=== PATIENT | male | born 1990 | race Caucasian/White ===

== ENCOUNTER 2021-11-11 19:53 | Emergency (ER) | payer MEDICAID, SELFPAY ==
[2021-11-11 19:54] VITALS: BP 138/90; PULSE 73; RESP 17; TEMP 36.9; O2SAT 98; BMI 24.4
--- NOTE | 2021-11-11 21:25 | PC.NURSE ---
Pt is upset on the wait time and decided to leave prior to being seen. Attempted to explain to pt that radiology was taking a longer time than expected and apologized. Pt walked away.
[2021-11-11 21:31] VITALS: BP 126/84; PULSE 75; RESP 20; TEMP 36.8; O2SAT 97
== END 2021-11-11 21:32 | disposition left against medical advice (07) ==
PROVIDERS: Emergency Provider Emergency Medicine
DX: M25.521 Pain in right elbow (principal); M25.531 Pain in right wrist

== ENCOUNTER 2021-11-12 11:22 | Emergency (ER) | payer MEDICAID, SELFPAY ==
[2021-11-12 11:22] VITALS: BP 126/84; PULSE 71; RESP 16; TEMP 36.7; O2SAT 97; BMI 24.4
--- NOTE | 2021-11-12 11:41 | XR_ITS ---
FINAL REPORT CLINICAL HISTORY: Fall FINDINGS: RIGHT ELBOW 2 views were obtained. The coronoid process fracture seen on the forearm is not well visualized. The joint spaces are intact. There is a joint effusion/hemarthrosis. IMPRESSION: Coronoid process fracture not well seen but there is a joint effusion/hemarthrosis. Reviewed, Interpreted and Dictated by Albert Burch III, MD Transcribed by Brigette Shen Authenticated and [facility]
--- NOTE | 2021-11-12 11:41 | XR_ITS ---
FINAL REPORT CLINICAL HISTORY: Fall FINDINGS: RIGHT FOREARM 2 views of the right forearm were obtained. There is a fracture of the coronoid process of the proximal ulna. The joints are intact. There are no soft tissue abnormalities. IMPRESSION: Proximal ulna fracture as above. Reviewed, Interpreted and Dictated by Albert Burch III, MD Transcribed by Brigette Shen Authenticated and [facility]
--- NOTE | 2021-11-12 11:41 | XR_ITS ---
FINAL REPORT CLINICAL HISTORY: Fall FINDINGS: RIGHT HUMERUS 3 views were obtained. There is no acute fracture or dislocation. There are mild degenerative changes of the glenohumeral joint. There is no soft tissue abnormality. IMPRESSION: No acute bony abnormality. Reviewed, Interpreted and Dictated by Albert Burch III, MD Transcribed by Brigette Shen Authenticated and [facility]
--- NOTE | 2021-11-12 11:42 | PC.NURSE ---
Notified rad of xrays
--- NOTE | 2021-11-12 11:47 | HMH.EDGENADL ---
ED Disposition Clinical Impression: Effusion, right elbow Fracture of coronoid process of ulna, right, closed Qualifiers: Encounter type: initial encounter Fracture alignment: displaced Qualified Code(s): S52.041A - Displaced fracture of coronoid process of right ulna, initial encounter for closed fracture Disposition: Home, Self-Care Condition on Discharge: Good Instructions: How to Use a Sling, DI for Elbow Fracture, How to Take Care of Your Splint Additional Instructions: Splint and sling until seen by orthopedics. Shelli as needed for pain. Additional instructions for FRACTURED (BROKEN) BONE: See Dr. Sheehan as soon as possible for further evaluation. Treat your splint like you would a cast: Do not get it wet (cover with a plastic bag while bathing or showering). If the splint feels too tight, you may loosen the tremaine wrap covering it, but do not remove the splint. You may ice the fracture by applying an ice pack over the top of the splint, without removing the splint. Return to an emergency department immediately if you have uncontrollable pain, loss of feeling or inability to move your injured extremity. Additional instructions for CONTROLLED SUBSTANCES: You have been prescribed a medication that is a controlled substance. Controlled substances include pain medications known as opiates and sedative nerve medications known as benzodiazepines. Tramadol, fioricet, and gabapentin are also controlled substances. Some common opiates include: Codeine (such as Tylenol #3) Hydrocodone (Vicodin, Lortab, Lorcet, [place]) Oxycodone (Percocet, Percodan, Oxycodone, Oxy IR) Some common benzodiazepines include: Diazepam (Valium) Lorazepam (Ativan) Alprazolam (Xanax) Clonazepam (Klonopin) Oxazepam (Serax) All of these controlled substances are highly addictive and frequently abused. Misuse can and frequently does lead to addiction as well as overdose and . Medication should be stored in a locked cabinet or other secure storage unit. Do not store the medication in a motor vehicle. Short term supplies, 3 days or less, are prescribed because of the highly addictive nature of the medication. Any of the controlled substance medication NOT taken should be disposed of properly and NOT SAVED. The recommended method of disposing of unused medications is: Place the medicines in a sealable plastic bag. If the medicine is a solid, crush it or add water to dissolve it. Add something undesirable (cat litter, coffee grounds, etc.) Dispose of sealed bag in household trash Do not flush or pour unused medicines down a sink or drain. Controlled substances should not be shared, given away or sold. Because of the addictive nature and frequent abuse, these medications are sometimes stolen. These medications should be kept in a safe place where they cannot be stolen. Do not keep them in your car or purse. Lost or stolen prescriptions for controlled substances WILL NOT BE REFILLED in this emergency department, regardless of whether a police report was filed. Prescriptions: Hydrocod/Acet 5/325 mg [[place] 5/325mg tablet] 1 tab PO Q6HP PRN #10 tab PRN Reason: Pain Transmission Status: Received by [id number] Referrals: Provider,Romulo, [Primary Care Provider] - Carmelo Sheehan JR, MD [Physician] - - Critical Care Critical Care Time: No Attestation: On , the high probability of a clinically significant, sudden or life threatening deterioration of the following system(s) required my full and direct attention, intervention and personal management. The time I documented below is in addition to time spent performing reported procedures but includes the following listed in this critical care notation. Medical Decision Making - Per Inquiry Pt receiving controlled substance: Yes Per was queried for this patient: Yes Risks and benefits of using a controlled substance: were discussed with pt by me
--- NOTE | 2021-11-12 12:34 | PC.NURSE ---
Rad at bedside
[2021-11-12 13:14] VITALS: BP 138/88; PULSE 72; RESP 16; O2SAT 98
--- NOTE | 2021-11-12 13:20 | PC.NURSE ---
Called rad to check on status of readings of images. Was advised that they would check into it and call us back.
[2021-11-12 13:35] VITALS: BP 135/82; PULSE 70; RESP 16; TEMP 36.7; O2SAT 99
== END 2021-11-12 13:35 | disposition home or self-care (01) ==
PROVIDERS: Emergency Provider Emergency Medicine
DX: S52.041A Displaced fracture of coronoid process of right ulna, initial encounter for closed fracture (principal); W19.XXXA Unspecified fall, initial encounter
CPT/HCPCS: 29105; 73060; 73080; 73090; 99212; G0463

== ENCOUNTER 2023-01-05 08:49 | Emergency (ER) | payer SELFPAY ==
--- NOTE | 2023-01-05 08:51 | XR_ITS ---
FINAL REPORT CLINICAL HISTORY: chest pain, SOA FINDINGS: Two views of the chest were obtained. The heart size and pulmonary vascularity are within normal limits. The mediastinum is normal. No acute pulmonary abnormality is identified. There is no pneumothorax. The bony thorax is intact. IMPRESSION: No active cardiopulmonary disease. Reviewed, Interpreted and Dictated by Albert Burch III, MD Transcribed by Christy Avilez Authenticated and . [facility]
[2023-01-05 08:56] VITALS: BP 138/92; PULSE 60; RESP 19; TEMP 36.8; O2SAT 100; BMI 23.0
[2023-01-05 09:04] LABS: Basophils # 0.1 K/mm3 (0-0.2); Basophils % 0.9 % (0.1-2.0); Eosinophils # 0.4 K/mm3 (0.0-0.4); Eosinophils % 5.1 % (0.1-12.0); Hematocrit 46.2 % (42.0-52.0); Hemoglobin 14.9 g/dL (14.1-18.0); Lymphocytes # 1.8 K/mm3 (0.7-4.5); Lymphocytes % 23.1 % (10-50); Mean Corpuscular HGB Conc 32.3 g/dL (31.8-35.4); Mean Corpuscular Hemoglobin 28.3 pg (27.0-31.2); Mean Corpuscular Volume 87.7 fl (80-94); Mean Platelet Volume 9.6 fl (7.4-10.4); Monocytes # 0.7 K/mm3 (0.1-1.0); Monocytes % 9.2 % (1.7-9.3); Neutrophils # 4.8 K/mm3 (1.8-7.8); Neutrophils % 61.6 % (37.0-80.0); Platelet Count 171 K/mm3 (142-424); Red Blood Count 5.27 M/mm3 (4.60-6.20); Red Cell Distribution Width 13.3 % (11.5-17.5); White Blood Count 7.8 K/mm3 (4.8-10.8)
[2023-01-05 09:11] LABS: Alanine Aminotransferase 46 U/L (12-78); Albumin/Globulin Ratio 1.3 (1.1-1.8); Alkaline Phosphatase 71 U/L (38-126); Anion Gap 8.3 mEq/L (5-15); Aspartate Amino Transferase 42 U/L (17-59); Bilirubin,Total 0.3 mg/dl (0.2-1.3); Blood Urea Nitrogen 13 mg/dl (9-20); Carbon Dioxide 30 mmol/L (22.0-30.0); Chloride 104 mmol/L (98-107); Creatinine Clearance Estimated 142 mL/min (50-200); Estimated Glomerular Filt Rate 111 ml/min (>60); GFR (African American) 134 ML/MIN (>60); Glucose 100 mg/dl (74-100); Potassium 4.3 mmoL/L (3.5-5.1); Sodium 138 mmol/L (136-145)
[2023-01-05 09:15] VITALS: PULSE 63; RESP 10; O2SAT 99
[2023-01-05 09:18] LABS: C-Reactive Protein 0.5 mg/L (0-4)
[2023-01-05 09:29] LABS: T4 (Thyroxine) 8.5 ug/dl (5.53-11.0)
[2023-01-05 09:30] LABS: Erythrocyte Sedimentation Rate 1 mm/hr (0-15)
[2023-01-05 09:32] VITALS: BP 104/72; PULSE 66; RESP 16; O2SAT 100
[2023-01-05 09:38] LABS: Troponin I < 0.01 ng/ml (0.00-0.034)
[2023-01-05 09:43] LABS: Thyroid Stimulating Hormone 3.38 uIU/mL (0.465-4.68)
--- NOTE | 2023-01-05 09:44 | HMH.EDGENADL ---
Discharge Plan Disposition Patient Disposition: Home, Self-Care Condition: Good Prescriptions Prescriptions: New naproxen 500 mg tablet 500 mg PO Q12H PRN (Reason: pain) Qty: 20 0RF No Action hydrocodone-acetaminophen 1 TAB tablet 1 tab PO Q6HP PRN (Reason: Pain) Qty: 10 0RF Referrals Follow up/Referrals: Provider,Referral, MD [Primary Care Provider] - See instructions Activity Restrictions/Add. Instructions Additional Instructions/Restrictions: You were evaluated in the emergency department today. Please follow-up closely with your primary care provider. support manager your prescription for naproxen and take as needed for pain. You may also take Tylenol. Return to the emergency department for any new or worsening symptoms. Clinical Impressions Clinical Impression: Chest wall muscle strain Qualifiers: Encounter type: initial encounter Qualified Code(s): S29.011A - Strain of muscle and tendon of front wall of thorax, initial encounter Instructions Patient Instructions: DI for Atypical Chest Pain Discharge ED Provider: Nemo Waite General Adult HPI General Chief complaint: Chest Pain Stated complaint: chest pain Time Seen by Provider: 01/05/23 08:51 Mode of Arrival: Ambulatory Source of Information: Patient Limitations: No Limitations Description of Symptoms (Recalled from ER Triage Doc. by RN): 32 yo M presents to ED with c/o chest pain. pt reports pain intermittent since last night. pt reports pain located in right chest. pain worse with deep inspiration. History of Present Illness HPI narrative: This patient is a 32-year-old male who denies significant past medical history presenting to the emergency department for evaluation with concern for right-sided chest pain that is worse with taking deep breaths. It is on his right lower chest wall. It is associated with tenderness to palpation. He reports that it started on Wednesday. No traumatic injury noted. Nothing seems to bring it on. Nothing makes it better. He denies any recent fevers, chills, cough, congestion, shortness of breath, abdominal pain, nausea, vomiting, changes in bowel movements, or other concerns. He denies any history of blood clots, clotting disorders, unilateral extremity swelling, or other issues. Related Data Previous Rx's Medication Instructions Recorded hydrocodone 5 mg-acetaminophen 325 1 tab PO Q6HP PRN Pain #10 tabs 11/12/ mg tablet naproxen 500 mg tablet 500 mg PO Q12H PRN pain #20 tabs 01/05/23 Allergies Allergy/AdvReac Type Severity Reaction Status Date / Time No Known Allergies Allergy Verified 11/14/21 15:03 [facility] Disclaimer: The information contained in this section may have been updated after the patient was seen, as this information can be updated by other users. Social History Smoking Status: Current every day smoker alcohol intake: never current occupational status: employed Travel in the last 8 weeks: None ROS Obtained: Yes All systems reviewed & no additional complaints except as documented Physical Exam General General appearance: alert and in no apparent distress Head Head exam: atraumatic and normocephalic Eye Eye exam: Present normal appearance, PERRL and EOMI ENT ENT exam: Present normal exam, normal oropharynx and mucous membranes moist Neck Neck exam: Present normal inspection, full ROM and trachea midline; Absent tenderness Chest Chest inspection: Present symmetric chest wall rise and tenderness (Pain is reproducible tenderness to palpation of the right anterior lower chest wall. No obvious deformity) Respiratory Respiratory exam: Present normal lung sounds bilaterally; Absent respiratory distress, wheezes, stridor or accessory muscle use Cardiovascular Cardiovascular exam: Present regular rate and normal rhythm Abdominal Exam Abdominal exam: Present soft; Absent distention, tenderness or guarding Extremities E
--- NOTE | 2023-01-05 09:53 | ECG_ITS ---
APPROVED REPORT Exam: Resting ECG HR:55 bpm ECG Measurements Heart Rate 55 AXES [place] 143 P 51 QRSd 94 QRS 89 QT 401 T 83 QTc [address] ELEVATION, PROBABLY EARLY REPOLARIZATION [ST ELEVATION WITH NORMALLY INFLECTED T-WAVE] BORDERLINE ECG UNCONFIRMED REPORT Electronically signed by : Keon Porras MD 01/06/2023 17:35:37
[2023-01-05 10:01] VITALS: BP 113/56; PULSE 55; RESP 10; O2SAT 98
[2023-01-05 10:30] VITALS: BP 108/73; PULSE 56; RESP 10; O2SAT 98
[2023-01-05 11:13] VITALS: BP 104/67; PULSE 60; RESP 12; TEMP 37; O2SAT 99
== END 2023-01-05 11:15 | disposition home or self-care (01) ==
PROVIDERS: Emergency Provider Emergency Medicine
DX: S29.011A Strain of muscle and tendon of front wall of thorax, initial encounter (principal); R07.9 Chest pain, unspecified; X58.XXXA Exposure to other specified factors, initial encounter; F17.200 Nicotine dependence, unspecified, uncomplicated; R00.1 Bradycardia, unspecified
CPT/HCPCS: 71046; 80053; 84436; 84443; 84484; 85025; 85651; 86140; 93005; 96374; 99285